=== PATIENT | male | born 1955 | race Caucasian/White ===

== ENCOUNTER 2023-06-26 15:25 | Emergency (ER) | payer BC, OTHER ==
[2023-06-26 16:08] LABS: Hemoglobin 11.1 g/dL (14.0-18.0); Mean Corpuscular HGB CONC 34.4 g/dL (32.0-36.0); Mean Corpuscular Hemoglobin 28.3 pg (27.0-31.0); Mean Corpuscular Volume 82.4 fl (78.0-98.0); Mean Platelet Volume 9.8 fL (7.4-10.4); Platelet Count 162 10x3/uL (130-400); RBC Distribution Width 14.8 % (11.5-14.5); Red Blood Cell (RBC) Count 3.92 mill/uL (4.70-6.10); White Blood Cell (WBC) Count 10.8 10x3/uL (4.8-10.8)
[2023-06-26 16:13] LABS: Delete Auto Diff?? YES; Manual Diff?? YES
[2023-06-26 16:39] LABS: Band 20 % (5-11); CellaVision Operator ID LAB.KB; Large Platelets 0.9 % (0-5); Lymphocytes 2 % (21-51); Monocytes 1 % (0-10); Neutrophil 75 % (42-75); Platelet Adequacy Comment Platelets Normal; RBC Morphology Within Normal Limits; Reactive Lymphocytes 2 % (0-10); Smudge Cells 7.4 %; Total Cell Count 108
[2023-06-26 16:40] LABS: Toxic Granulation SLIGHT
[2023-06-26 16:43] LABS: ALT (SGPT) 16 U/L (8-55); AST (SGOT) 44 U/L (5-34); Albumin 2.7 g/dL (3.4-4.8); Alkaline Phosphatase 785 U/L (40-110); Anion Gap 15 mmol/L (10-20); BUN (Urea Nitrogen) 19 mg/dL (8.4-25.7); Bilirubin, Total 0.5 mg/dL (0.2-1.2); Calc. Creatinine Clearance 0 mL/min (70-130); Carbon Dioxide 25 mmol/L (23-31); Chloride 95 mmol/L (98-107); Estimated GFR 99; Globulin 2.3 g/dL (2.4-3.5); Glucose 111 mg/dL (80-115); Potassium 2.8 mmol/L (3.5-5.1); Sodium 132 mmol/L (136-145)
[2023-06-26 16:51] LABS: Calcium 5.6 mg/dL (7.8-10.44)
[2023-06-26] MEDS ORDERED: Potassium Chloride 20 MEQ TAB ONE (18:05)
== END 2023-06-26 19:41 | disposition home or self-care (01) ==
LOC: ERS 15:25
DX: I11.0 Hypertensive heart disease with heart failure (principal); I50.9 Heart failure, unspecified; F17.210 Nicotine dependence, cigarettes, uncomplicated
CPT/HCPCS: 71045; 80053; 84484; 85025; 93005; 99284

== ENCOUNTER 2023-10-21 09:01 | Outpatient (CLI) | payer MEDICARE | END 2023-10-21 09:02 | disposition home or self-care (01) | LOC: CT 09:01 | PROVIDERS: ATTEND Internal Medicine Hematology & Oncology | DX: C61 Malignant neoplasm of prostate (principal); C79.51 Secondary malignant neoplasm of bone; N32.89 Other specified disorders of bladder; I99.8 Other disorder of circulatory system; R94.8 Abnormal results of function studies of other organs and systems; Z90.49 Acquired absence of other specified parts of digestive tract | CPT/HCPCS: 74177; 78306; A9503 ==

== ENCOUNTER 2023-12-25 11:41 | Outpatient (CLI) | payer MEDICARE | END 2023-12-25 11:42 | disposition home or self-care (01) | LOC: SCSMRI 11:41 | PROVIDERS: ATTEND Internal Medicine Hematology & Oncology | DX: C61 Malignant neoplasm of prostate (principal); C79.51 Secondary malignant neoplasm of bone; M54.50 Low back pain, unspecified; M54.6 Pain in thoracic spine; M47.816 Spondylosis without myelopathy or radiculopathy, lumbar region; M51.36 Other intervertebral disc degeneration, lumbar region; M89.38 Hypertrophy of bone, other site; Z98.890 Other specified postprocedural states | CPT/HCPCS: 72157; 72158 ==

== ENCOUNTER 2024-04-22 08:33 | Outpatient (CLI) | payer MEDICARE | END 2024-04-22 08:34 | disposition home or self-care (01) | LOC: NM 08:33 | PROVIDERS: ATTEND Internal Medicine Hematology & Oncology | DX: C61 Malignant neoplasm of prostate (principal); C79.51 Secondary malignant neoplasm of bone; N32.9 Bladder disorder, unspecified; N62 Hypertrophy of breast; I70.90 Unspecified atherosclerosis; Z90.49 Acquired absence of other specified parts of digestive tract | CPT/HCPCS: 71260; 74177; 78306; A9503 ==

== ENCOUNTER 2025-08-12 12:30 | Outpatient (CLI) | payer OTHER | END 2025-08-12 12:31 | disposition home or self-care (01) | LOC: PET 12:30 | PROVIDERS: ATTEND Internal Medicine Hematology & Oncology | DX: C61 Malignant neoplasm of prostate (principal); C79.51 Secondary malignant neoplasm of bone; J18.9 Pneumonia, unspecified organism; E11.9 Type 2 diabetes mellitus without complications | CPT/HCPCS: 78815; A9595; 80053; 82728; 83036; 83540; 83550; 84153 ==

== ENCOUNTER 2025-10-20 11:25 | Day surgery (SDC) | payer OTHER ==
[2025-10-20 11:50] VITALS: BP 92/55; TEMP 97.8
[2025-10-20 15:33] LABS: Anion Gap 15 mmol/L (10-20); BUN (Urea Nitrogen) 47 mg/dL (8.4-25.7); Calc. Creatinine Clearance 0 mL/min (70-130); Calcium 7.8 mg/dL (7.8-10.44); Carbon Dioxide 25 mmol/L (23-31); Chloride 100 mmol/L (98-107); Glucose 253 mg/dL (80-115); Potassium 4.8 mmol/L (3.5-5.1); Sodium 135 mmol/L (136-145)
== END 2025-10-20 15:18 | disposition home or self-care (01) ==
LOC: ONC/OP 11:25
PROVIDERS: ATTEND Internal Medicine Hematology & Oncology
DX: E86.0 Dehydration (principal)
CPT/HCPCS: 36591; 80048; 96360; 96361; J1642

== ENCOUNTER 2025-10-26 13:18 | Outpatient (CLI) | payer MEDICARE, OTHER | END 2025-10-26 13:19 | disposition home or self-care (01) | LOC: CT 13:18 | PROVIDERS: ATTEND Physician Assistant | DX: M54.16 Radiculopathy, lumbar region (principal); C79.51 Secondary malignant neoplasm of bone | CPT/HCPCS: 72131 ==